=== PATIENT | male | born 1960 | race Caucasian/White ===

== ENCOUNTER 2017-09-09 12:22 | Day surgery (SDC) | payer BC ==
[2017-09-07 16:18] VITALS: BMI 24.3
[~2017-09-09 12:22] MED LIST: LACTATED RINGERS 1,000 ML IV SCH
[2017-09-09] MEDS ORDERED: LACTATED RINGERS 1,000 ML IV ONE (12:48)
[2017-09-09 12:54] VITALS: RESP 18; TEMP 98
[2017-09-09] MEDS ORDERED: LIDOCAINE 1% 20 ML VIAL (10MG/ML) FOR IV START INTRADERMA ONE (13:02)
[2017-09-09] MEDS ORDERED: PROPOFOL 10 MG/ML 20 ML VIAL IV ONE (13:24)
--- NOTE | 2017-09-09 13:28 | P.GSHP ---
History of Present Illness H&P Date: 09/09/17 Chief Complaint: Screening colonoscopy This is a 56-year-old male who presents today for screening colonoscopy. Patient appears history: Polyps. He denies any significant GI complaints. Past Medical History Past Medical History: Cancer, CVA/TIA, Hyperlipidemia, Hypertension, Skin Disorder Additional Past Medical History / Comment(s): RT Eye CVA - PARTIAL VISION. MELANOMA. HX MENIERE'S disease History of Any Multi-Drug Resistant Organisms: None Reported Past Surgical History: Appendectomy, Ear Surgery, Tonsillectomy Additional Past Surgical History / Comment(s): LT EAR SURG. COLONOSCOPY. Past Anesthesia/Blood Transfusion Reactions: No Reported Reaction Smoking Status: Never smoker - Past Family History Father Family Medical History: Cancer Additional Family Medical History / Comment(s): PROSTATE; CA BLOOD DISORDER, UNSURE OF WHAT Mother Family Medical History: Cancer Additional Family Medical History / Comment(s): COLON Medications and Allergies Home Medications Medication Instructions Recorded Confirmed Type Aspirin 81 mg PO DAILY 01/04/15 09/07/17 History Atorvastatin [Lipitor] 40 mg PO DAILY 01/04/15 09/07/17 History Valsartan [Diovan] 160 mg PO DAILY 09/07/17 09/07/17 History Allergies Allergy/AdvReac Type Severity Reaction Status Date / Time Penicillins Allergy Anaphylaxis Verified 09/07/17 15:54 Surgical - Exam Vital Signs Temp Pulse Resp BP Pulse Ox 98.0 F 80 18 126/80 99 09/09/17 12:53 09/09/17 12:53 09/09/17 12:53 09/09/17 12:53 09/09/17 12:53 - General well developed, no distress - Eyes PERRL - ENT normal pinna - Neck no masses - Respiratory normal expansion - Cardiovascular Rhythm: regular - Abdomen Abdomen: soft, non tender Assessment and Plan Assessment: We'll perform screening colonoscopy.
--- NOTE | 2017-09-09 13:48 | P.OP ---
Date of Procedure: 09/09/17 Preoperative Diagnosis: Screening colonoscopy Postoperative Diagnosis: Normal colonoscopy to mid descending colon Procedure(s) Performed: Colonoscopy Anesthesia: MAC Surgeon: Flavio Edouard Pathology: none sent Condition: stable Disposition: PACU Description of Procedure: The patient's placed on the endoscopy table lateral position. He received IV sedation. Digital rectal exam was performed which revealed no rebound is. The flexible colonoscope was then placed patient anus passed throughout colon. The scope could not be passed beyond the mid descending colon secondary to tortuosity the sigmoid colon. Several times made to maneuver the scope however this wasn't possible. It was decided to withdraw the scope prevent injury to the colon. This point scope withdrawn the distal descending colon and was normal. The sigmoid colon was tortuous. There is no significant diverticula seen. Scope was then brought back the rectum and this appeared normal. Scope was withdrawn for patient.
[2017-09-09 14:33] VITALS: BP 137/85; PULSE 51
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
== END 2017-09-09 14:40 | disposition home or self-care (01) ==
LOC: ORWHC2ENDO 12:22
PROVIDERS: ATTEND Surgery
DX: Z12.11 Encounter for screening for malignant neoplasm of colon (principal); Z86.010 Personal history of colon polyps; Z53.8 Procedure and treatment not carried out for other reasons; Q43.8 Other specified congenital malformations of intestine; E78.5 Hyperlipidemia, unspecified; I10 Essential (primary) hypertension; H81.09 Meniere's disease, unspecified ear; Z85.820 Personal history of malignant melanoma of skin; Z79.82 Long term (current) use of aspirin; Z79.899 Other long term (current) drug therapy; Z88.0 Allergy status to penicillin; I69.398 Other sequelae of cerebral infarction; H53.8 Other visual disturbances
CPT/HCPCS: 74270; J2704; G0105; 45378

== ENCOUNTER 2023-08-06 06:35 | Day surgery (SDC) | payer BC ==
[2023-07-29 12:06] VITALS: BMI 25.1
[2023-08-06] MEDS ORDERED: LACTATED RINGERS 1,000 ML IV ONE (06:46)
[2023-08-06] MEDS ORDERED: LACTATED RINGERS 1,000 ML IV SCH (06:47)
[2023-08-06] MEDS ORDERED: LIDOCAINE 1% (10MG/ML) FOR IV START INTRADERMA PRN (06:47)
[2023-08-06 07:15] VITALS: TEMP 96.9
[2023-08-06] MEDS ORDERED: PROPOFOL 10 MG/ML 20 ML VIAL IV ONE (07:38)
--- NOTE | 2023-08-06 07:43 | P.GSHP ---
History of Present Illness H&P Date: 08/06/23 Chief Complaint: History: Cancer, screening colonoscopy This is a 60-year-old male who presents today for screening colonoscopy. Patient has a strong family history of colon cancer. Past Medical History Past Medical History: Cancer, CVA/TIA, Hyperlipidemia, Hypertension, Skin Disorder Additional Past Medical History / Comment(s): RT Eye CVA - PARTIAL VISION. MELANOMA. HX MENIERE'S disease History of Any Multi-Drug Resistant Organisms: None Reported Past Surgical History: Appendectomy, Ear Surgery, Tonsillectomy Additional Past Surgical History / Comment(s): LT EAR SURG. COLONOSCOPY., melanoma off leg Past Anesthesia/Blood Transfusion Reactions: Postoperative Nausea & Vomiting (PONV) Additional Past Anesthesia/Blood Transfusion Reaction / Comment(s): no blood transfusion Smoking Status: Current some day smoker - Past Family History Father Family Medical History: Cancer Additional Family Medical History / Comment(s): PROSTATE; CA BLOOD DISORDER, UNSURE OF WHAT Mother Family Medical History: Cancer Additional Family Medical History / Comment(s): COLON Medications and Allergies Home Medications Medication Instructions Recorded Confirmed Type Atorvastatin [Lipitor] 40 mg PO DAILY 01/04/15 08/06/23 History Olmesartan Medoxomil 40 mg PO DAILY 07/29/23 08/06/23 History tadalafiL 5 mg PO DAILY 07/29/23 08/06/23 History Omeprazole [PriLOSEC] 10 mg PO DAILY 08/06/23 08/06/23 History Allergies Allergy/AdvReac Type Severity Reaction Status Date / Time Penicillins Allergy Anaphylaxis Verified 08/06/23 06:51 Surgical - Exam Vital Signs Temp Pulse Resp Pulse Ox 96.9 F L 82 20 99 08/06/23 06:53 08/06/23 06:53 08/06/23 06:53 08/06/23 06:53 - General well developed, well nourished, no distress - Eyes PERRL - ENT normal pinna - Neck no masses - Respiratory normal expansion - Cardiovascular Rhythm: regular - Abdomen Abdomen: soft, non tender Assessment and Plan Assessment: Family history of colon cancer. We'll perform screening colonoscopy.
[2023-08-06 08:03] VITALS: RESP 16
--- NOTE | 2023-08-06 08:05 | P.OP ---
Date of Procedure: 08/06/23 Preoperative Diagnosis: Screening colonoscopy Postoperative Diagnosis: Rectal polyp Diverticulosis Procedure(s) Performed: Colonoscopy Anesthesia: MAC Surgeon: Flavio Edouard Pathology: other (rectal polyp) Condition: stable Disposition: PACU Description of Procedure: The patient's placed on the endoscopy table in the lateral position. He received IV sedation. Digital rectal exam was performed. This revealed no abnormalities. The flexible colonoscope was then placed patient anus and passed throughout the entire colon. The ileocecal valve was visualized. The cecum, ascending and transverse colon appeared normal. The descending and sigmoid colon had a few scattered diverticuli. The scope was then brought back the rectum and a small sessile polyp was seen. This removed with the cold forcep. Scope was withdrawn for patient.
[2023-08-06 08:28] VITALS: BP 109/73; PULSE 79
== END 2023-08-06 08:35 | disposition home or self-care (01) ==
LOC: ORWHC2ENDO 06:35
PROVIDERS: ATTEND Surgery
DX: Z12.11 Encounter for screening for malignant neoplasm of colon (principal); K62.1 Rectal polyp; K57.30 Diverticulosis of large intestine without perforation or abscess without bleeding; F17.200 Nicotine dependence, unspecified, uncomplicated; I10 Essential (primary) hypertension; E78.5 Hyperlipidemia, unspecified; H81.09 Meniere's disease, unspecified ear; Z85.820 Personal history of malignant melanoma of skin; Z86.73 Personal history of transient ischemic attack (TIA), and cerebral infarction without residual deficits; Z85.9 Personal history of malignant neoplasm, unspecified; Z79.899 Other long term (current) drug therapy; Z88.0 Allergy status to penicillin; Z98.890 Other specified postprocedural states; Z80.0 Family history of malignant neoplasm of digestive organs
CPT/HCPCS: 88305; 45380; J2704

== ENCOUNTER 2024-02-21 17:05 | Emergency (ER) | payer BC ==
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
[2024-02-21] MEDS: ONDANSETRON 4 MG/2 ML VIAL IVP STA (17:39)
[2024-02-21 17:53] LABS: Basophils # (A) 0.1 k/uL (0-0.2); Basophils % (A) 1 %; Eosinophils # (A) 0.1 k/uL (0-0.7); Eosinophils % (A) 1 %; HCT 46.5 % (39.0-53.0); HGB 15.1 gm/dL (13.0-17.5); Lymphocytes # (A) 1.1 k/uL (1.0-4.8); Lymphocytes % (A) 11 %; MCH 29.5 pg (25.0-35.0); MCHC 32.5 g/dL (31.0-37.0); MCV 90.7 fL (80.0-100.0); Mean Platelet Volume 6.8; Monocytes # (A) 0.5 k/uL (0-1.0); Monocytes % (A) 5 %; Neutrophils % (A) 82 %; Platelet Count 214 k/uL (150-450); RBC 5.12 m/uL (4.30-5.90); RDW 13.2 % (11.5-15.5); WBC 9.8 k/uL (3.8-10.6)
[2024-02-21] MEDS: SODIUM CHLORIDE 0.9% 1,000 ML IV STA (18:01)
[2024-02-21 18:05] LABS: ALT 30 U/L (4-49); AST 31 U/L (17-59); African American GFR (CKD) >90 (>60 ml/min/1.73 sqM); Albumin 4.4 g/dL (3.5-5.0); Alkaline Phosphatase 99 U/L (38-126); Anion Gap 9 mmol/L; Blood Urea Nitrogen 19 mg/dL (9-20); Calcium 9.4 mg/dL (8.4-10.2); Carbon Dioxide 24 mmol/L (22-30); Chloride 107 mmol/L (98-107); Creatine Kinase 156 U/L (55-170); Glucose 78 mg/dL (74-99); Lipase 71 U/L (23-300); Magnesium 1.8 mg/dL (1.6-2.3); Non-African American GFR(CKD) 81 (>60 ml/min/1.73 sqM); Sodium 140 mmol/L (137-145); Total Bilirubin 1.1 mg/dL (0.2-1.3); Total Protein 6.6 g/dL (6.3-8.2)
[2024-02-21] MEDS: SODIUM CHLORIDE 0.9% 500 ML 500 ML IV STA (19:00)
[2024-02-21 20:21] VITALS: BP 109/68; PULSE 66; RESP 18; TEMP 98
== END 2024-02-21 20:21 | disposition home or self-care (01) ==
LOC: EC 17:05
DX: T67.5XXA Heat exhaustion, unspecified, initial encounter (principal); E86.0 Dehydration; R10.13 Epigastric pain; F17.200 Nicotine dependence, unspecified, uncomplicated; Z86.73 Personal history of transient ischemic attack (TIA), and cerebral infarction without residual deficits; Z88.0 Allergy status to penicillin
CPT/HCPCS: 36415; 80053; 82550; 83605; 83690; 83735; 84484; 85025; 93005; 96360; 96361; 99285